=== PATIENT | male | born 1935 | race Caucasian/White ===

== ENCOUNTER 2024-03-20 22:21 | Inpatient (IN) | payer SELFPAY ==
[~2024-03-20] VITALS: Ht 160 cm; Wt 65.8 kg
[2024-03-21 02:47] LABS: BASOPHILS % 0.8 % (0.0-2.0); HEMATOCRIT. 35.5 % (42.0-52.0); HEMOGLOBIN. 11.9 g/dL (14.0-18.0); MEAN CORPUSCULAR HEMOGLOBIN 29.9 pg (28.0-32.0); MEAN CORPUSCULAR HGB CONC 33.6 g/dL (31.0-37.0); MEAN PLATELET VOLUME 7.8 fl (7.4-10.4); MONOCYTES % 6.8 % (2.0-8.0); NEUTROPHILS % 47.4 % (40.0-76.0); PLATELET 243 x1000/uL (130-400); RED BLOOD CELL COUNT 3.98 mill/uL (4.7-6.1); RED CELL DISTRIBUTION WIDTH 15.1 % (11.6-14.6); WHITE BLOOD COUNT 5.1 x1000/uL (4.5-11.0)
[2024-03-21 02:50] LABS: CHLORIDE 112 mEq/L (98-107); POTASSIUM 3.6 mEq/L (3.5-5.1); SODIUM 144 mEq/L (136-145)
[2024-03-21 02:51] LABS: CALCIUM 8.8 mg/dL (8.7-10.4); CARBON DIOXIDE 26 mEq/L (21-32)
[2024-03-21 02:56] LABS: GLUCOSE 114 mg/dL (70-105); UREA NITROGEN BLOOD 14 mg/dL (9-23)
[2024-03-21] MEDS ORDERED: IPRATROPIUM/ALBUTEROL 0.5-3(2.5)MG/3ML NEB HHN PRN (11:15)
[2024-03-21] MEDS ORDERED: ONDANSETRON HCL 4MG/2ML INJ IV PRN (11:15)
[2024-03-21] MEDS ORDERED: DOCUSATE SODIUM 100MG CAPSULE PO PRN (11:15)
[2024-03-21] MEDS ORDERED: GUAIFENESIN 200MG/10ML SUGAR FREE UDC PO PRN (11:15)
[2024-03-21] MEDS ORDERED: NA PHOS,M-B/NA PHOS,DI-BA ENEMA 118ML PR PRN (11:15)
[2024-03-21] MEDS: PANTOPRAZOLE SODIUM 40 MG/VIAL IV SCH (12:40)
[2024-03-21 13:31] LABS: IRON 80 ug/dL (65-175)
[2024-03-21 13:32] LABS: AMMONIA < 17 uMol/L (<32); TROPONIN I HIGH SENSITIVITY 11 ng/L (3.0-53)
[2024-03-21 13:33] LABS: ALANINE AMINOTRANSFERASE 9 IU/L (10-49); ALBUMIN 3.9 g/dL (3.2-4.8); ASPARTATE AMINOTRANSFERASE 19 IU/L (<34); BILIRUBIN DIRECT 0.3 mg/dL (<=3.0); CREATINE KINASE 114 IU/L (46-171); PHOSPHORUS 2.9 mg/dL (2.5-4.9)
[2024-03-21 13:34] LABS: PROTEIN TOTAL 6.9 g/dL (6.0-8.3); TOTAL IRON BINDING CAPACITY 350 ug/dl (250-425)
[2024-03-21 13:36] LABS: T4 FREE 1.21 ng/dL (0.89-1.76); THYROID STIMULATING HORMONE 2.99 uIU/mL (0.55-4.78)
[2024-03-21 13:53] LABS: CLARITY URINE CLEAR (CLEAR); COLOR URINE YELLOW (YELLOW); GLUCOSE URINE NEGATIVE (NEGATIVE); KETONES URINE NEGATIVE (NEGATIVE); LEUKOCYTE ESTERASE URINE NEGATIVE (NEGATIVE); NITRITE URINE NEGATIVE (NEGATIVE); OCCULT BLOOD URINE NEGATIVE (NEGATIVE); PH URINE 7.5 (4.5-8.0); PROTEIN URINE NEGATIVE (NEGATIVE); SPECIFIC GRAVITY URINE 1.011 (1.005-1.030); UROBILINOGEN URINE 0.2 E.U./dL (0.2-1.0)
[2024-03-21 14:17] LABS: *AMPHETAMINES SCREEN URINE NEGATIVE (NEGATIVE)
[2024-03-21 14:18] LABS: *BARBITURATES SCREEN URINE NEGATIVE (NEGATIVE); *BENZODIAZEPINES SCREEN URINE NEGATIVE (NEGATIVE); *COCAINE SCREEN URINE NEGATIVE (NEGATIVE)
[2024-03-21 14:19] LABS: CANNABINOID URINE SCREEN NEGATIVE (NEGATIVE); ECSTASY MDMA SCREEN URINE NEGATIVE (NEGATIVE); METHADONE URINE SCREEN NEGATIVE (NEGATIVE); OPIATES URINE SCREEN NEGATIVE (NEGATIVE); PHENCYCLIDINE URINE SCREEN NEGATIVE (NEGATIVE)
[2024-03-21] MEDS ORDERED: MORPHINE SULFATE 2 MG/ML INJ (NOT FOR IM USE) IV PRN (15:45)
[2024-03-21 16:00] VITALS: BP 123/87; PULSE 88; RESP 18; TEMP 36.6696; O2SAT 97
[2024-03-21 17:37] VITALS: BP 125/88; PULSE 88; RESP 18; TEMP 36.696
[2024-03-21 20:00] VITALS: BP 139/77; PULSE 71; RESP 19; TEMP 36.50292; O2SAT 99
[2024-03-21 22:32] LABS: CREATINE KINASE MB FRACTION 3.3 ng/mL (0.5-3.6)
[2024-03-22 01:24] LABS: CREATINE KINASE MB FRACTION 3.1 ng/mL (0.5-3.6)
[2024-03-22 04:00] VITALS: BP 149/73; PULSE 79; RESP 19; TEMP 36.22512; O2SAT 97
[2024-03-22 08:00] VITALS: BP 163/85; PULSE 66; RESP 20; TEMP 36.61404; O2SAT 99
[2024-03-22 08:19] LABS: HEMATOCRIT. 37.4 % (42.0-52.0); HEMOGLOBIN. 12.7 g/dL (14.0-18.0); MEAN CORPUSCULAR HEMOGLOBIN 30.7 pg (28.0-32.0); MEAN CORPUSCULAR HGB CONC 33.9 g/dL (31.0-37.0); MEAN CORPUSCULAR VOLUME 90.4 fL (80.0-94.0); MEAN PLATELET VOLUME 7.6 fl (7.4-10.4); PLATELET 250 x1000/uL (130-400); RED BLOOD CELL COUNT 4.13 mill/uL (4.7-6.1); WHITE BLOOD COUNT 5.2 x1000/uL (4.5-11.0)
[2024-03-22 08:40] LABS: CARBON DIOXIDE 27 mEq/L (21-32); CHLORIDE 108 mEq/L (98-107); DIFFERENTIAL COMMENT 1; POTASSIUM 3.6 mEq/L (3.5-5.1); SODIUM 141 mEq/L (136-145)
[2024-03-22 08:41] LABS: CALCIUM 8.7 mg/dL (8.7-10.4)
[2024-03-22 08:45] LABS: CREATININE 0.9 mg/dL (0.6-1.3)
[2024-03-22 08:46] LABS: GLUCOSE 101 mg/dL (70-105); TRIGLYCERIDE 104 mg/dL (0-150); UREA NITROGEN BLOOD 16 mg/dL (9-23)
[2024-03-22 08:47] LABS: ALBUMIN 3.7 g/dL (3.2-4.8); LDL CHOLESTEROL 93 mg/dL (5-100)
[2024-03-22 08:48] LABS: CHOLESTEROL 179 mg/dL (<200); HDL CHOLESTEROL 69 mg/dL (>55); T4 FREE 1.13 ng/dL (0.89-1.76)
[2024-03-22 08:49] LABS: THYROID STIMULATING HORMONE 3.44 uIU/mL (0.55-4.78)
[2024-03-22 10:59] LABS: PLATELET ESTIMATE NORMAL
[2024-03-22 12:00] VITALS: BP 142/74; PULSE 65; RESP 20; TEMP 36.72516; O2SAT 99
[2024-03-22] MEDS: CLONIDINE 0.1MG TABLET PO PRN (15:58)
[2024-03-22 16:00] VITALS: BP 156/82; PULSE 62; RESP 20; TEMP 36.72516; O2SAT 91
[2024-03-22 20:00] VITALS: BP 138/74; PULSE 60; RESP 18; TEMP 36.55848; O2SAT 98
[2024-03-22] MEDS: LORAZEPAM 0.5MG TABLET PO PRN (20:00)
[2024-03-23] VITALS: BP 131/72; PULSE 74; RESP 18; TEMP 37.05852; O2SAT 98
[2024-03-23 04:00] VITALS: BP 128/68; PULSE 82; RESP 18; TEMP 36.55848; O2SAT 97
[2024-03-23 08:00] VITALS: BP 152/82; PULSE 62; RESP 16; TEMP 36.16956; O2SAT 100
[2024-03-23 12:00] VITALS: BP 122/56; PULSE 65; RESP 18; TEMP 36.50292; O2SAT 100
[2024-03-23 16:00] VITALS: BP 108/60; PULSE 63; RESP 18; TEMP 36.44736; O2SAT 100
[2024-03-23 20:00] VITALS: BP 145/78; PULSE 66; RESP 18; TEMP 36.44736; O2SAT 100
[2024-03-24] VITALS (7 sets, daily range): BP systolic 122–167; BP diastolic 61–79; PULSE 57–71; RESP 18–19; TEMP 36.05844–37.00296; O2SAT 98–100
[2024-03-25] VITALS: BP 141/68; PULSE 62; RESP 18; TEMP 36.50292; O2SAT 98
[2024-03-25 04:00] VITALS: BP 150/77; PULSE 70; RESP 18; TEMP 36.61404; O2SAT 100
[2024-03-25 08:00] VITALS: BP 150/78; PULSE 61; RESP 19; TEMP 36.61404; O2SAT 100
[2024-03-25 12:00] VITALS: BP 125/63; PULSE 68; RESP 19; TEMP 36.61404; O2SAT 99
[2024-03-25 16:00] VITALS: BP 161/96; PULSE 69; RESP 19; TEMP 36.55848; O2SAT 98
[2024-03-25 20:00] VITALS: BP 146/73; PULSE 66; RESP 18; TEMP 36.3918; O2SAT 98
[2024-03-26] VITALS: BP 143/72; PULSE 60; RESP 18; TEMP 35.94732; O2SAT 99
[2024-03-26 04:00] VITALS: BP 138/82; PULSE 72; RESP 18; TEMP 36.50292; O2SAT 98
[2024-03-26 08:00] VITALS: BP 148/82; PULSE 60; RESP 20; TEMP 36.78072; O2SAT 99
[2024-03-26 12:00] VITALS: BP 153/73; PULSE 63; RESP 19; TEMP 36.78072; O2SAT 99
[2024-03-26 16:00] VITALS: BP 135/70; PULSE 65; RESP 19; TEMP 36.78072; O2SAT 99
[2024-03-26 20:00] VITALS: BP 121/68; PULSE 90; RESP 18; TEMP 36.3918; O2SAT 99
[2024-03-27] VITALS: BP 143/77; PULSE 60; RESP 18; TEMP 36.50292; O2SAT 98
[2024-03-27 04:00] VITALS: BP 163/86; PULSE 61; RESP 18; TEMP 36.72516; O2SAT 100
== END 2024-03-27 12:45 | disposition home or self-care (01) | DRG 241 ==
LOC: ER 22:21 → EDBEDREQ 03-21 10:13 → 6EST 03-21 15:40
PROVIDERS: ADMIT Internal Medicine; ATTEND Internal Medicine
DX: K27.9 Peptic ulcer, site unspecified, unspecified as acute or chronic, without hemorrhage or perforation (principal); G92.8 Other toxic encephalopathy; D72.10 Eosinophilia, unspecified; F03.90 Unspecified dementia, unspecified severity, without behavioral disturbance, psychotic disturbance, mood disturbance, and anxiety; R62.7 Adult failure to thrive; B89 Unspecified parasitic disease; K76.9 Liver disease, unspecified; Z20.822 Contact with and (suspected) exposure to COVID-19; D64.9 Anemia, unspecified; K76.0 Fatty (change of) liver, not elsewhere classified; Z59.00 Homelessness unspecified; Z68.25 Body mass index [BMI] 25.0-25.9, adult
CPT/HCPCS: 36415; 71045; 76705; 80048; 80061; 80076; 80305; 81003; 82040; 82140; 82550; 82553; 83036; 83540; 83550; 83735; 84100; 84439; 84443; 84480; 84484; 85025; 87207; 87426; 87804; 92610; 93970; 97116; 97162; 97166; 99285; J2470